=== PATIENT | female | born 1955 | race Caucasian/White ===

== ENCOUNTER 2018-11-01 05:37 | Day surgery (SDC) | payer MEDICAID ==
[2018-11-01] VITALS (8 sets, daily range): BP systolic 119–151; BP diastolic 40–82
[~2018-11-01] VITALS: Ht 165.1 cm; Wt 91.2 kg
[2018-11-01] MEDS ORDERED: PROPOFOL 10 MG/ML 20ML VIAL IV ONE ×2 (06:30→06:31)
[2018-11-01] MEDS ORDERED: GLYCOPYRROLATE 0.2 MG/ML 5 ML VIAL ONE (06:31)
[2018-11-01] MEDS ORDERED: STOOL SOFTNER PO (06:35)
[2018-11-01] MEDS ORDERED: HYDR25TA PO (06:35)
[2018-11-01] MEDS ORDERED: DORZ10DR10 OP (06:35)
[2018-11-01] MEDS ORDERED: ATOR10 PO (06:35)
[2018-11-01] MEDS ORDERED: QUET50TA55 PO (06:35)
[2018-11-01] MEDS ORDERED: CETI10TA57 PO (06:35)
[2018-11-01] MEDS ORDERED: IBUP-2353 PO (06:35)
[2018-11-01] MEDS ORDERED: LIRA0.6P SQ (06:35)
[2018-11-01] MEDS ORDERED: INSU100V12 SQ (06:35)
[2018-11-01] MEDS ORDERED: METO50TA18 PO (06:35)
[2018-11-01] MEDS ORDERED: TRAZ-185 PO (06:35)
[2018-11-01] MEDS ORDERED: ZOLP5TAB8 PO (06:35)
[2018-11-01] MEDS ORDERED: LATA7.5D OP (06:35)
[2018-11-01] MEDS ORDERED: DULO60CA63 PO (06:35)
[2018-11-01] MEDS ORDERED: AEC81 PO (06:35)
[2018-11-01] MEDS ORDERED: FLUT15.88 NS (06:35)
[2018-11-01] MEDS ORDERED: INSU100I35 SQ (06:35)
[2018-11-01] MEDS ORDERED: LISI40TA4 PO (06:35)
[2018-11-01] MEDS ORDERED: CHLO25TA3 PO (06:35)
[2018-11-01] MEDS ORDERED: METF-806 PO (06:35)
== END 2018-11-01 10:50 | disposition home or self-care (01) ==
LOC: ENDO 05:37 → DAH 05:37 → ENDO 10:50
PROVIDERS: ATTEND Internal Medicine
DX: R63.4 Abnormal weight loss (principal); K29.50 Unspecified chronic gastritis without bleeding; K44.9 Diaphragmatic hernia without obstruction or gangrene; K22.8 Other specified diseases of esophagus; E78.5 Hyperlipidemia, unspecified; I10 Essential (primary) hypertension; F41.9 Anxiety disorder, unspecified; F32.9 Major depressive disorder, single episode, unspecified; E11.9 Type 2 diabetes mellitus without complications; M81.0 Age-related osteoporosis without current pathological fracture; M19.90 Unspecified osteoarthritis, unspecified site; Z79.899 Other long term (current) drug therapy; Z98.890 Other specified postprocedural states
CPT/HCPCS: 43239; 45378; 82948; 88305; A4606 ×2; J2704 ×2; J3490; 45380; 45384

== ENCOUNTER 2018-11-02 05:30 | Day surgery (SDC) | payer MEDICAID ==
[~2018-11-02] VITALS: Ht 165.1 cm; Wt 91.2 kg
[~2018-11-02 05:30] MED LIST: AEC81 PO; ATOR10 PO; CETI10TA57 PO; CHLO25TA3 PO; DORZ10DR10 OP; DULO60CA63 PO; FLUT15.88 NS; HYDR25TA PO; IBUP-2353 PO; INSU100I35 SQ; INSU100V12 SQ; LATA7.5D OP; LIRA0.6P SQ; LISI40TA4 PO; METF-806 PO; METO50TA18 PO; QUET50TA55 PO; STOOL SOFTNER PO; TRAZ-185 PO; ZOLP5TAB8 PO
[2018-11-02] MEDS ORDERED: SODIUM CHLORIDE 0.9% 1000ML 1,000 ML IV ONE (05:50)
[2018-11-02 06:00] VITALS: BP 135/81
[2018-11-02] MEDS ORDERED: PROPOFOL 10 MG/ML 20ML VIAL IV ONE (07:15)
[2018-11-02 07:30] VITALS: BP 111/57
[2018-11-02 07:35] VITALS: BP 109/62
[2018-11-02 07:40] VITALS: BP 151/80
[2018-11-02 07:50] VITALS: BP 114/75
== END 2018-11-02 08:00 | disposition home or self-care (01) ==
LOC: ENDO 05:30 → DAH 05:30 → ENDO 08:00
PROVIDERS: ATTEND Internal Medicine
DX: K63.5 Polyp of colon (principal); Z68.33 Body mass index [BMI] 33.0-33.9, adult; E78.5 Hyperlipidemia, unspecified; I10 Essential (primary) hypertension; F41.9 Anxiety disorder, unspecified; F32.9 Major depressive disorder, single episode, unspecified; E11.9 Type 2 diabetes mellitus without complications; M81.0 Age-related osteoporosis without current pathological fracture; M19.90 Unspecified osteoarthritis, unspecified site; G40.909 Epilepsy, unspecified, not intractable, without status epilepticus; Z98.890 Other specified postprocedural states; Z79.899 Other long term (current) drug therapy; Z79.84 Long term (current) use of oral hypoglycemic drugs; Z79.4 Long term (current) use of insulin; K57.30 Diverticulosis of large intestine without perforation or abscess without bleeding
CPT/HCPCS: 45380; 82948 ×2; A4606; J2704; J7030

== ENCOUNTER 2018-11-30 07:44 | Day surgery (SDC) | payer MEDICAID ==
[~2018-11-30] VITALS: Ht 165.1 cm; Wt 88.9 kg
[2018-11-30] MEDS ORDERED: SODIUM CHLORIDE 0.9% 1000ML 1,000 ML IV ONE (08:07)
[2018-11-30 08:29] VITALS: BP 129/57
[2018-11-30] MEDS ORDERED: PROPOFOL 10 MG/ML 20ML VIAL IV ONE (09:06)
[2018-11-30] MEDS ORDERED: LIDOCAINE HCL 2% 20ML ONE (09:08)
[2018-11-30 09:26] VITALS: BP 144/66
[2018-11-30 09:28] VITALS: BP 110/65
[2018-11-30 09:30] VITALS: BP 119/56
== END 2018-11-30 10:04 | disposition home or self-care (01) ==
LOC: DAH 07:44
PROVIDERS: ATTEND Internal Medicine Gastroenterology
DX: K31.89 Other diseases of stomach and duodenum (principal); E78.5 Hyperlipidemia, unspecified; I10 Essential (primary) hypertension; F41.9 Anxiety disorder, unspecified; F32.9 Major depressive disorder, single episode, unspecified; E11.9 Type 2 diabetes mellitus without complications; M81.0 Age-related osteoporosis without current pathological fracture; M19.90 Unspecified osteoarthritis, unspecified site; G40.909 Epilepsy, unspecified, not intractable, without status epilepticus; Z68.32 Body mass index [BMI] 32.0-32.9, adult; Z79.899 Other long term (current) drug therapy; Z98.890 Other specified postprocedural states; Z79.4 Long term (current) use of insulin; Z79.84 Long term (current) use of oral hypoglycemic drugs; K21.9 Gastro-esophageal reflux disease without esophagitis
CPT/HCPCS: 43259; 82948 ×2; A4606; J2704; J3490; J7030

== ENCOUNTER 2021-08-17 09:52 | Inpatient (IN) | payer MEDICARE ==
[~2021-08-17] VITALS: Ht 160 cm; Wt 87.7 kg
[~2021-08-17 09:52] MED LIST changes: -DORZ10DR10 OP; -DULO60CA63 PO; +DULO60CA64 PO; +FLUT15.845 NS; -FLUT15.88 NS; -IBUP-2353 PO; +IBUP-2784 PO; -LISI40TA4 PO; +LISI40TA9 PO; -METF-806 PO; +METF-891 PO; +QUET50TA24 PO; -QUET50TA55 PO
[2021-08-17 10:16] LABS: APPEARANCE,URINE Clear (CLEAR); BILIRUBIN,URINE Negative (NEGATIVE); COLOR,URINE Yellow (YELLOW); GLUCOSE, URINE (UA) Negative (NEGATIVE); KETONES,URINE Negative (NEGATIVE); LEUKOCYTE ESTERASE ,URINE Trace (NEGATIVE); NITRATE,URINE Negative (NEGATIVE); OCCULT BLOOD,URINE Negative (NEGATIVE); PROTEIN,URINE Negative (NEGATIVE); UROBILINOGEN,URINE 0.2 mg/dL (0.2-1.0)
[2021-08-17 10:24] LABS: BASOPHILS % (AUTO) 0.2 % (0.0-5.0); HEMATOCRIT 22.5 % (36-48); LYMPHOCYTES % (AUTO) 36.8 % (21.0-51.0); MEAN CORPUSCULAR HEMOGLOBIN 31.5 pg (27.0-33.0); MEAN CORPUSCULAR HGB CONC 34.7 g/dL (32.0-36.0); MEAN CORPUSCULAR VOLUME 90.7 fL (79-99); MONOCYTES % (AUTO) 19.6 % (3.0-13.0); PLATELET COUNT (AUTO) 84 K/uL (130-400); RED BLOOD CELL COUNT(AUTO) 2.48 MIL/uL (4.00-5.50); RED CELL DISTRIBUTION WIDTH 17.2 % (11.0-15.5)
[2021-08-17 10:28] LABS: BACTERIA,URINE Few /HPF (None Seen); RBC,URINE None Seen /HPF (0-1); WBC,URINE 0-1 /HPF (0-1)
[2021-08-17 10:29] LABS: CREATININE 1.4 mg/dL (0.5-1.5); POTASSIUM 3.5 mmol/L (3.5-5.1)
[2021-08-17 10:31] LABS: INR 1.06 (0.85-1.15); PROTHROMBIN TIME 11.5 SEC (9.6-11.6)
[2021-08-17 10:32] LABS: PARTIAL THROMBOPLASTIN TIME 21.9 SEC (26.3-35.5)
[2021-08-17 10:34] LABS: ALBUMIN 3.8 g/dL (3.5-5.0); BILIRUBIN,TOTAL 0.3 mg/dL (0.2-1.0); TOTAL PROTEIN, SERUM 7.4 g/dL (6.0-8.3)
[2021-08-17] MEDS ORDERED: ZOSYN 3.375GM +NS 50ML IV ONE (11:30)
[2021-08-17] MEDS ORDERED: LACTATED RINGERS 1000ML 1,000 ML IV SCH ×2 (13:00→13:30)
[2021-08-17] MEDS ORDERED: DEXTROSE 50%-WATER 50 ML DISP.SYRIN IV ONE (13:03)
[2021-08-17] MEDS ORDERED: MAGNESIUM 2GM PREMIX 50ML 50 ML IV SCH (13:30)
[2021-08-17] MEDS ORDERED: GLUCAGON 1MG KIT 1 MG ML IM PRN (13:30)
[2021-08-17] MEDS ORDERED: DEXTROSE 50%-WATER 50 ML DISP.SYRIN IV PRN (13:30)
[2021-08-17] MEDS ORDERED: ONDANSETRON 4MG INJ IV PRN (13:30)
[2021-08-17] MEDS ORDERED: VANCOMYCIN PROTOCOL PER PHARMACY IV PRN (13:30)
[2021-08-17] MEDS: DEXTROSE 5 % AND 0.9 % NACL 1,000 ML IV SCH (13:32)
[2021-08-17 13:48] LABS: AMPHET/METH SCREEN,URINE NEGATIVE (NEGATIVE); BARBITURATE SCREEN, URINE NEGATIVE (NEGATIVE); BENZODIAZEPINES SCREEN,URINE NEGATIVE (NEGATIVE); CANNABINOID SCREEN,URINE NEGATIVE (NEGATIVE); COCAINE SCREEN,URINE NEGATIVE (NEGATIVE); OPIATE SCREEN,URINE NEGATIVE (NEGATIVE); PHENCYCLIDINE SCREEN,URINE NEGATIVE (NEGATIVE)
[2021-08-17 13:58] LABS: HEMOGLOBIN A1C 5.5 % (4.0-6.0)
[2021-08-17] MEDS ORDERED: COMPOUND IV REFRIGERATED 1 EACH IVSOLN MISC PRN (14:00)
[2021-08-17] MEDS ORDERED: PHARMACY COMMUNICATION MISC SCH (14:30)
[2021-08-17 14:49] LABS: % IRON SATURATION 28.2 % (22-44)
[2021-08-17 15:30] VITALS: BP 116/63
[2021-08-17 15:45] LABS: HEMATOCRIT 21.1 % (36-48)
[2021-08-17] MEDS: VANCOMYCIN 1.25GM/NS 250ML IVPB SCH ×2 (16:06)
[2021-08-17 20:38] VITALS: BP 97/59
[2021-08-17] MEDS: FAMOTIDINE 20MG VIAL IV SCH (21:08)
[2021-08-17] MEDS: ZOSYN 3.375GM+NS 50ML 50 ML IV SCH (21:08)
[2021-08-17 22:23] LABS: HEMATOCRIT 19.6 % (36-48)
[2021-08-17 23:32] VITALS: BP 97/75
[2021-08-18 04:04] VITALS: BP 134/77
[2021-08-18 04:59] LABS: HEMATOCRIT 25.3 % (36-48)
[2021-08-18] MEDS ORDERED: CHOL200074 PO (05:42)
[2021-08-18] MEDS ORDERED: ONDA-105 PO (05:42)
[2021-08-18] MEDS ORDERED: QUET50TA24 PO (05:42)
[2021-08-18] MEDS ORDERED: TIMO1DRO5 OP (05:42)
[2021-08-18] MEDS ORDERED: CYAN250010 PO (05:42)
[2021-08-18] MEDS ORDERED: MELA1TAB21 PO (05:42)
[2021-08-18] MEDS ORDERED: BIOT5000 PO (05:42)
[2021-08-18] MEDS ORDERED: ZINC30CA PO (05:42)
[2021-08-18] MEDS ORDERED: CHLO50TA PO (05:42)
[2021-08-18] MEDS ORDERED: GABA-529 PO (05:42)
[2021-08-18] MEDS ORDERED: ZOLP10TA2 PO (05:42)
[2021-08-18] MEDS ORDERED: SEMA1PEN3 SQ (05:42)
[2021-08-18] MEDS: ZOSYN 3.375GM+NS 50ML 50 ML IV SCH ×3 (06:11→21:19)
[2021-08-18 06:41] LABS: ALBUMIN 3.6 g/dL (3.5-5.0); BILIRUBIN,TOTAL 0.4 mg/dL (0.2-1.0); CREATININE 1.2 mg/dL (0.5-1.5); POTASSIUM 3.6 mmol/L (3.5-5.1)
[2021-08-18 07:57] VITALS: BP 116/61
[2021-08-18] MEDS: FAMOTIDINE 20MG VIAL IV SCH ×2 (09:09→21:20)
[2021-08-18] MEDS: DEXTROSE 5 % AND 0.9 % NACL 1,000 ML IV SCH ×2 (09:30→19:30)
[2021-08-18 09:50] LABS: HEMATOCRIT 24.5 % (36-48)
[2021-08-18 10:58] VITALS: BP 145/74
[2021-08-18] MEDS: INSULIN HUMULIN R 100 UNIT/ML 3ML SQ SCH ×3 (12:43→21:36)
[2021-08-18] MEDS: VANCOMYCIN 1.25GM/NS 250ML IVPB SCH ×2 (15:24)
[2021-08-18 16:29] VITALS: BP 145/69
[2021-08-18] MEDS: ASPIRIN 81MG CHEW TAB PO SCH (18:36)
[2021-08-18 20:00] VITALS: BP 121/67
[2021-08-18] MEDS: LATANOPROST 2.5 ML DROPS OP SCH (21:00)
[2021-08-18] MEDS: TIMOLOL MALEATE 0.5% 5 ML BOTTLE OP SCH (21:00)
[2021-08-18] MEDS ORDERED: PYRIDOXINE HCL PO PRN (21:00)
[2021-08-18] MEDS ORDERED: MELATONIN PO PRN (21:00)
[2021-08-18] MEDS: QUETIAPINE FUMARATE 25 MG TAB PO SCH (21:18)
[2021-08-18] MEDS: ATORVASTATIN 20 MG TABLET PO SCH (21:18)
[2021-08-18] MEDS: GABAPENTIN 100 MG CAPSULE PO SCH (21:18)
[2021-08-18] MEDS: METOPROLOL TARTRATE 25 MG TAB PO SCH (21:18)
[2021-08-19] VITALS: BP 122/74
[2021-08-19 03:56] VITALS: BP 126/76
[2021-08-19] MEDS: DEXTROSE 5 % AND 0.9 % NACL 1,000 ML IV SCH (05:30)
[2021-08-19] MEDS: ZOSYN 3.375GM+NS 50ML 50 ML IV SCH ×3 (06:37→20:51)
[2021-08-19] MEDS: INSULIN HUMULIN R 100 UNIT/ML 3ML SQ SCH ×6 (06:38→21:17)
[2021-08-19 07:17] LABS: EOSINOPHILS % (AUTO) 0.8 % (0.0-8.0); HEMATOCRIT 24.5 % (36-48); LYMPHOCYTES % (AUTO) 36.9 % (21.0-51.0); MEAN CORPUSCULAR HEMOGLOBIN 30.6 pg (27.0-33.0); MEAN CORPUSCULAR HGB CONC 33.1 g/dL (32.0-36.0); MEAN CORPUSCULAR VOLUME 92.5 fL (79-99); NEUTROPHILS % (AUTO) 39.3 % (40.0-77.0); RED BLOOD CELL COUNT(AUTO) 2.65 MIL/uL (4.00-5.50); RED CELL DISTRIBUTION WIDTH 16.6 % (11.0-15.5); WHITE BLOOD COUNT (AUTO) 3.7 K/uL (4.8-10.8)
[2021-08-19 07:19] LABS: PLATELET COUNT (AUTO) 46 K/uL (130-400)
[2021-08-19 07:35] LABS: CREATININE 1.1 mg/dL (0.5-1.5)
[2021-08-19] MEDS: INSULIN GLARGINE 100 UNITS/ML 10 ML VIAL SQ SCH (07:58)
[2021-08-19] MEDS: FAMOTIDINE 20MG VIAL IV SCH ×2 (07:58→20:51)
[2021-08-19] MEDS: GABAPENTIN 100 MG CAPSULE PO SCH ×2 (08:00→20:49)
[2021-08-19] MEDS: DULOXETINE HCL 30 MG CAP PO SCH (08:00)
[2021-08-19] MEDS: METOPROLOL TARTRATE 25 MG TAB PO SCH ×2 (08:00→20:54)
[2021-08-19] MEDS: QUETIAPINE FUMARATE 25 MG TAB PO SCH ×2 (08:01→20:48)
[2021-08-19] MEDS: ASPIRIN 81MG CHEW TAB PO SCH (08:01)
[2021-08-19 08:05] VITALS: BP 119/67
[2021-08-19] MEDS: LATANOPROST 2.5 ML DROPS OP SCH ×2 (08:19→20:51)
[2021-08-19] MEDS: **HM**(Biotin 5,000 MCG PO SCH (08:19)
[2021-08-19] MEDS: TIMOLOL MALEATE 0.5% 5 ML BOTTLE OP SCH ×2 (08:19→20:50)
[2021-08-19] MEDS: FLUTICASONE PROPIONATE 50MCG/SPRAY 16 GM BOTTLE NS SCH (09:00)
[2021-08-19 11:46] VITALS: BP 116/64
[2021-08-19 17:02] VITALS: BP 117/67
[2021-08-19] MEDS: VANCOMYCIN 1.25GM/NS 250ML IVPB SCH ×2 (17:25)
[2021-08-19 20:00] VITALS: BP 120/66
[2021-08-19] MEDS: ATORVASTATIN 20 MG TABLET PO SCH (20:48)
[2021-08-20] VITALS: BP 94/55
[2021-08-20 04:00] VITALS: BP 106/67
[2021-08-20 05:17] LABS: EOSINOPHILS % (AUTO) 1.3 % (0.0-8.0); HEMATOCRIT 23.6 % (36-48); LYMPHOCYTES % (AUTO) 30.2 % (21.0-51.0); MEAN CORPUSCULAR HEMOGLOBIN 29.9 pg (27.0-33.0); MEAN CORPUSCULAR HGB CONC 33.1 g/dL (32.0-36.0); MEAN CORPUSCULAR VOLUME 90.4 fL (79-99); MONOCYTES % (AUTO) 20.5 % (3.0-13.0); NEUTROPHILS % (AUTO) 47.7 % (40.0-77.0); PLATELET COUNT (AUTO) 47 K/uL (130-400); RED BLOOD CELL COUNT(AUTO) 2.61 MIL/uL (4.00-5.50); RED CELL DISTRIBUTION WIDTH 16.2 % (11.0-15.5); WHITE BLOOD COUNT (AUTO) 3.7 K/uL (4.8-10.8)
[2021-08-20 05:32] LABS: ALBUMIN 3.3 g/dL (3.5-5.0); BILIRUBIN,TOTAL 0.4 mg/dL (0.2-1.0); CREATININE 1.1 mg/dL (0.5-1.5); POTASSIUM 3.9 mmol/L (3.5-5.1); TOTAL PROTEIN, SERUM 6.6 g/dL (6.0-8.3)
[2021-08-20] MEDS: INSULIN HUMULIN R 100 UNIT/ML 3ML SQ SCH ×8 (06:03→21:18)
[2021-08-20] MEDS: ZOSYN 3.375GM+NS 50ML 50 ML IV SCH ×3 (06:11→21:04)
[2021-08-20 07:51] VITALS: BP 121/70
[2021-08-20] MEDS: DULOXETINE HCL 30 MG CAP PO SCH (10:09)
[2021-08-20] MEDS: ASPIRIN 81MG CHEW TAB PO SCH (10:09)
[2021-08-20] MEDS: QUETIAPINE FUMARATE 25 MG TAB PO SCH ×2 (10:09→21:04)
[2021-08-20] MEDS: METOPROLOL TARTRATE 25 MG TAB PO SCH ×2 (10:09→21:04)
[2021-08-20] MEDS: FAMOTIDINE 20MG VIAL IV SCH ×2 (10:09→21:04)
[2021-08-20] MEDS: FLUTICASONE PROPIONATE 50MCG/SPRAY 16 GM BOTTLE NS SCH (10:10)
[2021-08-20] MEDS: INSULIN GLARGINE 100 UNITS/ML 10 ML VIAL SQ SCH (10:16)
[2021-08-20] MEDS: LATANOPROST 2.5 ML DROPS OP SCH ×2 (10:38→21:00)
[2021-08-20] MEDS: TIMOLOL MALEATE 0.5% 5 ML BOTTLE OP SCH ×2 (10:38→21:00)
[2021-08-20] MEDS: **HM**(Biotin 5,000 MCG PO SCH (10:38)
[2021-08-20] MEDS: GABAPENTIN 100 MG CAPSULE PO SCH ×2 (10:42→21:04)
[2021-08-20 10:52] VITALS: BP 109/73
[2021-08-20 16:04] VITALS: BP 100/59
[2021-08-20] MEDS: VANCOMYCIN 1G/250ML KIT 250 ML IV SCH (16:20)
[2021-08-20 20:00] VITALS: BP 126/64
[2021-08-20] MEDS: ATORVASTATIN 20 MG TABLET PO SCH (21:04)
[2021-08-21] VITALS: BP 118/72
[2021-08-21 03:43] LABS: BASOPHILS % (AUTO) 0.3 % (0.0-5.0); EOSINOPHILS % (AUTO) 0.9 % (0.0-8.0); HEMATOCRIT 22.5 % (36-48); LYMPHOCYTES % (AUTO) 34.3 % (21.0-51.0); MEAN CORPUSCULAR HEMOGLOBIN 30.6 pg (27.0-33.0); MEAN CORPUSCULAR HGB CONC 33.3 g/dL (32.0-36.0); MEAN CORPUSCULAR VOLUME 91.8 fL (79-99); MONOCYTES % (AUTO) 22.3 % (3.0-13.0); NEUTROPHILS % (AUTO) 41.6 % (40.0-77.0); PLATELET COUNT (AUTO) 49 K/uL (130-400); RED BLOOD CELL COUNT(AUTO) 2.45 MIL/uL (4.00-5.50); RED CELL DISTRIBUTION WIDTH 16.3 % (11.0-15.5); WHITE BLOOD COUNT (AUTO) 3.5 K/uL (4.8-10.8)
[2021-08-21 04:00] VITALS: BP 110/66
[2021-08-21 04:01] LABS: ALBUMIN 3.1 g/dL (3.5-5.0); BILIRUBIN,TOTAL 0.3 mg/dL (0.2-1.0); POTASSIUM 3.9 mmol/L (3.5-5.1); TOTAL PROTEIN, SERUM 6.4 g/dL (6.0-8.3)
[2021-08-21] MEDS: VANCOMYCIN 1G/250ML KIT 250 ML IV SCH (04:44)
[2021-08-21] MEDS: ZOSYN 3.375GM+NS 50ML 50 ML IV SCH ×2 (04:44→13:39)
[2021-08-21] MEDS: QUETIAPINE FUMARATE 25 MG TAB PO SCH (07:20)
[2021-08-21] MEDS: INSULIN HUMULIN R 100 UNIT/ML 3ML SQ SCH ×3 (07:23→11:27)
[2021-08-21] MEDS ORDERED: INSULIN GLARGINE 100 UNITS/ML 10 ML VIAL SQ SCH (08:00)
[2021-08-21] MEDS: METOPROLOL TARTRATE 25 MG TAB PO SCH (08:36)
[2021-08-21] MEDS: ASPIRIN 81MG CHEW TAB PO SCH (08:37)
[2021-08-21] MEDS: DULOXETINE HCL 30 MG CAP PO SCH (08:37)
[2021-08-21] MEDS: FAMOTIDINE 20MG VIAL IV SCH (08:37)
[2021-08-21] MEDS: TIMOLOL MALEATE 0.5% 5 ML BOTTLE OP SCH (08:38)
[2021-08-21] MEDS: LATANOPROST 2.5 ML DROPS OP SCH (08:38)
[2021-08-21 08:39] VITALS: BP 96/58
[2021-08-21] MEDS: **HM**(Biotin 5,000 MCG PO SCH (08:47)
[2021-08-21] MEDS: FLUTICASONE PROPIONATE 50MCG/SPRAY 16 GM BOTTLE NS SCH (08:49)
[2021-08-21 11:52] VITALS: BP 113/66
[2021-08-21] MEDS: GABAPENTIN 100 MG CAPSULE PO SCH (14:55)
[2021-08-21 15:54] VITALS: BP 140/74
[2021-08-21] MEDS ORDERED: INSULIN HUMULIN R 100 UNIT/ML 3ML SQ SCH (17:00)
[2021-08-22] MEDS ORDERED: INSULIN GLARGINE 100 UNITS/ML 10 ML VIAL SQ SCH (08:00)
== END 2021-08-21 18:45 | disposition home health service (06) | DRG 853 ==
LOC: EDH 09:52 → EDHIP 13:14 → 4DH 15:18
PROVIDERS: ADMIT Internal Medicine; ATTEND Internal Medicine
PROC: 0JBR0ZZ Excision of Left Foot Subcutaneous Tissue and Fascia, Open Approach (ICD-10-PCS; principal; 2021-08-17)
PROC: 0JBQ0ZZ Excision of Right Foot Subcutaneous Tissue and Fascia, Open Approach (ICD-10-PCS; 2021-08-17)
PROC: 30233N1 Transfusion of Nonautologous Red Blood Cells into Peripheral Vein, Percutaneous Approach (ICD-10-PCS; 2021-08-18)
DX: A41.9 Sepsis, unspecified organism (principal); D61.810 Antineoplastic chemotherapy induced pancytopenia; C78.7 Secondary malignant neoplasm of liver and intrahepatic bile duct; L02.612 Cutaneous abscess of left foot; M86.8X7 Other osteomyelitis, ankle and foot; I82.812 Embolism and thrombosis of superficial veins of left lower extremity; D84.9 Immunodeficiency, unspecified; E66.9 Obesity, unspecified; E83.42 Hypomagnesemia; E78.5 Hyperlipidemia, unspecified; Z68.33 Body mass index [BMI] 33.0-33.9, adult; Z20.822 Contact with and (suspected) exposure to COVID-19; M19.90 Unspecified osteoarthritis, unspecified site; B35.1 Tinea unguium; B95.8 Unspecified staphylococcus as the cause of diseases classified elsewhere; D63.8 Anemia in other chronic diseases classified elsewhere; E78.00 Pure hypercholesterolemia, unspecified; F31.9 Bipolar disorder, unspecified; F43.10 Post-traumatic stress disorder, unspecified; G20 Parkinson's disease; I10 Essential (primary) hypertension; L03.039 Cellulitis of unspecified toe; L60.2 Onychogryphosis; E10.621 Type 1 diabetes mellitus with foot ulcer; E10.649 Type 1 diabetes mellitus with hypoglycemia without coma; E10.40 Type 1 diabetes mellitus with diabetic neuropathy, unspecified; E10.69 Type 1 diabetes mellitus with other specified complication; Z60.2 Problems related to living alone; R53.81 Other malaise; L97.519 Non-pressure chronic ulcer of other part of right foot with unspecified severity; L97.529 Non-pressure chronic ulcer of other part of left foot with unspecified severity; Z79.4 Long term (current) use of insulin; Z83.3 Family history of diabetes mellitus; Z82.0 Family history of epilepsy and other diseases of the nervous system; Z80.49 Family history of malignant neoplasm of other genital organs; Z80.1 Family history of malignant neoplasm of trachea, bronchus and lung; Z85.118 Personal history of other malignant neoplasm of bronchus and lung; L03.032 Cellulitis of left toe; L03.031 Cellulitis of right toe
CPT/HCPCS: 36415; 70450; 71045; 73630; 73718; 76700; 80048; 80053; 80202; 80305; 81001; 82140; 82550; 82728; 82948; 83036; 83540; 83550; 83605; 83735; 84484; 85014; 85018; 85025; 85610; 85730; 86850; 86900; 86901; 86923; 87040; 87070; 87088; 87635; 87804; 93005; 93925; 93970; C9803; G0378; J1815; J2543; J3370; J3490; J7042; J7050; J7070; P9016

== ENCOUNTER 2022-01-15 20:50 | Inpatient (IN) | payer MEDICARE ==
[~2022-01-15] VITALS: Ht 157.5 cm; Wt 104.6 kg
[~2022-01-15 20:50] MED LIST changes: -AEC81 PO; +BIOT5000 PO; -CETI10TA57 PO; -CHLO25TA3 PO; +CHLO50TA PO; +CHOL200074 PO; +CYAN250010 PO; +GABA-529 PO; -INSU100I35 SQ; -INSU100V12 SQ; -LIRA0.6P SQ; +MELA1TAB21 PO; +ONDA-105 PO; +SEMA1PEN3 SQ; +TIMO1DRO5 OP; +ZINC30CA PO; +ZOLP10TA2 PO; -ZOLP5TAB8 PO
[2022-01-15 21:46] LABS: HEMATOCRIT 36.5 % (36-48); MEAN CORPUSCULAR HEMOGLOBIN 31.2 pg (27.0-33.0); MEAN CORPUSCULAR HGB CONC 31.8 g/dL (32.0-36.0); MEAN CORPUSCULAR VOLUME 98.1 fL (79-99); PLATELET COUNT (AUTO) 110 K/uL (130-400); RED BLOOD CELL COUNT(AUTO) 3.72 MIL/uL (4.00-5.50); WHITE BLOOD COUNT (AUTO) 12.3 K/uL (4.8-10.8)
[2022-01-15 21:54] LABS: BASOPHILS % (AUTO) 0.2 % (0.0-5.0); EOSINOPHILS % (AUTO) 0.4 % (0.0-8.0); LYMPHOCYTES % (AUTO) 7.4 % (21.0-51.0); MONOCYTES % (AUTO) 10.7 % (3.0-13.0); NEUTROPHILS % (AUTO) 80.4 % (40.0-77.0)
[2022-01-15 21:55] LABS: POTASSIUM 3.8 mmol/L (3.5-5.1)
[2022-01-15 22:02] LABS: ALBUMIN 1.7 g/dL (3.5-5.0); BILIRUBIN,TOTAL 3.6 mg/dL (0.2-1.0); CRP QUANTITATIVE 179.5 mg/L (0.00-9.0); MAGNESIUM 1.3 mg/dL (1.80-2.40); TOTAL PROTEIN, SERUM 6.7 g/dL (6.0-8.3)
[2022-01-15 22:51] LABS: APPEARANCE,URINE Clear (CLEAR); BILIRUBIN,URINE Negative (NEGATIVE); COLOR,URINE Dark Yellow (YELLOW); GLUCOSE, URINE (UA) Negative (NEGATIVE); KETONES,URINE Negative (NEGATIVE); LEUKOCYTE ESTERASE ,URINE Trace (NEGATIVE); NITRATE,URINE Negative (NEGATIVE); OCCULT BLOOD,URINE Negative (NEGATIVE); PROTEIN,URINE Negative (NEGATIVE)
[2022-01-15 23:02] LABS: BACTERIA,URINE None Seen /HPF (None Seen); RBC,URINE None Seen /HPF (0-1); SQUAMOUS EPITHELIAL CELL,UR Few /HPF (0-2)
[2022-01-16] MEDS ORDERED: CEFTRIAXONE 1G VIAL ONE (01:56)
[2022-01-16] MEDS ORDERED: 0.9%NACL 1000ML 1,000 ML IV ONE (01:56)
[2022-01-16] MEDS: CEFTRIAXONE 1G VIAL IVP SCH (02:00)
[2022-01-16] MEDS: 0.9%NACL 1000ML 1,000 ML IV SCH ×3 (02:00→20:29)
[2022-01-16] MEDS ORDERED: ONDANSETRON 4MG INJ IVP PRN (02:00)
[2022-01-16] MEDS: MAGNESIUM 2GM PREMIX 50ML 50 ML IV SCH (03:36)
[2022-01-16 04:00] VITALS: BP 110/82
[2022-01-16 08:00] VITALS: BP 127/72
[2022-01-16 12:00] VITALS: BP 133/60
[2022-01-16 16:00] VITALS: BP 128/72
[2022-01-16 20:00] VITALS: BP 119/57
[2022-01-16] MEDS ORDERED: ZINC OXIDE OINT 56.7 GM TP SCH (21:00)
[2022-01-17] VITALS: BP 140/66
[2022-01-17] MEDS: CEFTRIAXONE 1G VIAL IVP SCH (02:12)
[2022-01-17 04:00] VITALS: BP 128/58
[2022-01-17] MEDS: MORPHINE 2 MG SYG IVP PRN ×3 (04:26→23:11)
[2022-01-17 08:00] VITALS: BP 134/75
[2022-01-17] MEDS: ZINC OXIDE OINT 56.7 GM TP SCH ×3 (09:49→20:30)
[2022-01-17] MEDS: 0.9%NACL 1000ML 1,000 ML IV SCH ×2 (09:50→20:29)
[2022-01-17 11:49] VITALS: BP 159/86
[2022-01-17 13:35] LABS: HEMATOCRIT 33.7 % (36-48); MEAN CORPUSCULAR HEMOGLOBIN 31.4 pg (27.0-33.0); NUCLEATED RED BLOOD CELLS 0.1 % (0.0-0.19); PLATELET COUNT (AUTO) 96 K/uL (130-400); RED BLOOD CELL COUNT(AUTO) 3.44 MIL/uL (4.00-5.50); RED CELL DISTRIBUTION WIDTH 18.9 % (11.0-15.5); WHITE BLOOD COUNT (AUTO) 13.7 K/uL (4.8-10.8)
[2022-01-17 13:56] LABS: LYMPHOCYTES % (MANUAL) 8 % (22-44); MAN.DIFF COMMENT-IMPRESSION MANUAL DIFFERENTIAL; MONOCYTES % (MANUAL) 8 % (2-9); PLATELET MORPHOLOGY COMMENT DECREASED; SEGMENTED NEUTROPHILS % 84 % (40-70)
[2022-01-17 16:00] VITALS: BP 123/65
[2022-01-17 20:00] VITALS: BP 136/71
[2022-01-17] MEDS: NYSTATIN 15 GM POWDER TP SCH (20:31)
[2022-01-18] VITALS (7 sets, daily range): BP systolic 126–143; BP diastolic 67–87
[2022-01-18] MEDS: CEFTRIAXONE 1G VIAL IVP SCH (02:10)
[2022-01-18] MEDS: 0.9%NACL 1000ML 1,000 ML IV SCH ×3 (04:00→23:19)
[2022-01-18] MEDS: NYSTATIN 15 GM POWDER TP SCH ×2 (09:24→21:12)
[2022-01-18] MEDS: ZINC OXIDE OINT 56.7 GM TP SCH ×3 (09:24→21:12)
[2022-01-18] MEDS: MORPHINE 2 MG SYG IVP PRN ×2 (09:51→18:21)
[2022-01-18 12:25] LABS: HEMATOCRIT 40.4 % (36-48); MEAN CORPUSCULAR HEMOGLOBIN 31.4 pg (27.0-33.0); MEAN CORPUSCULAR HGB CONC 31.7 g/dL (32.0-36.0); PLATELET COUNT (AUTO) 94 K/uL (130-400); RED BLOOD CELL COUNT(AUTO) 4.08 MIL/uL (4.00-5.50); RED CELL DISTRIBUTION WIDTH 19.2 % (11.0-15.5); WHITE BLOOD COUNT (AUTO) 15.9 K/uL (4.8-10.8)
[2022-01-18 12:49] LABS: ALBUMIN 1.7 g/dL (3.5-5.0); BILIRUBIN,TOTAL 4.8 mg/dL (0.2-1.0); CREATININE 1.2 mg/dL (0.5-1.5); MAGNESIUM 1.2 mg/dL (1.80-2.40); POTASSIUM 3.3 mmol/L (3.5-5.1); TOTAL PROTEIN, SERUM 6.7 g/dL (6.0-8.3)
[2022-01-18 13:25] LABS: BAND NEUTROPHILS % (MANUAL) 3 % (0-2); BASOPHILS % (MANUAL) 1 % (0-2); LYMPHOCYTES % (MANUAL) 5 % (22-44); MAN.DIFF COMMENT-IMPRESSION MANUAL DIFFERENTIAL; MONOCYTES % (MANUAL) 14 % (2-9); PLATELET MORPHOLOGY COMMENT MARKED DECREASE; SEGMENTED NEUTROPHILS % 77 % (40-70)
[2022-01-18] MEDS ORDERED: LIDOCAINE HCL-MPF 1% 2ML VIAL IJ PRN (13:30)
[2022-01-18] MEDS ORDERED: POTASSIUM CHLORIDE 10% ELIXIR 20 MEQ/15 ML UDCUP PO PRN (13:30)
[2022-01-18] MEDS ORDERED: POTASSIUM CHLORIDE 20MEQ/100ML 100 ML IV PRN (13:30)
[2022-01-18] MEDS: MAGNESIUM 2GM PREMIX 50ML 50 ML IV SCH ×2 (14:23→18:16)
[2022-01-18] MEDS: KCL 20 MEQ ERTAB PO PRN ×3 (14:29→18:31)
[2022-01-18] MEDS ORDERED: 0.9% NACL 500ML IV.SOLN 500 ML IV SCH (19:30)
[2022-01-19] MEDS: CEFTRIAXONE 1G VIAL IVP SCH (02:01)
[2022-01-19 04:00] VITALS: BP 117/49
[2022-01-19 07:45] LABS: MAGNESIUM 1.9 mg/dL (1.80-2.40); POTASSIUM 4.2 mmol/L (3.5-5.1)
[2022-01-19 08:00] VITALS: BP 161/72
[2022-01-19] MEDS: ZINC OXIDE OINT 56.7 GM TP SCH ×3 (09:00→20:43)
[2022-01-19] MEDS: NYSTATIN 15 GM POWDER TP SCH ×2 (09:00→20:43)
[2022-01-19] MEDS: 0.9%NACL 1000ML 1,000 ML IV SCH ×2 (10:00→20:43)
[2022-01-19] MEDS: METOPROLOL TARTRATE 25 MG TAB PO SCH ×2 (10:36→20:43)
[2022-01-19 12:00] VITALS: BP 126/68
[2022-01-19] MEDS ORDERED: ZOSYN 3.375GM +NS 50ML IV SCH (13:00)
[2022-01-19 13:33] LABS: APPEARANCE,URINE Cloudy (CLEAR); BILIRUBIN,URINE Moderate (NEGATIVE); COLOR,URINE Dark Yellow (YELLOW); GLUCOSE, URINE (UA) Negative (NEGATIVE); KETONES,URINE Trace mg/dL (NEGATIVE); LEUKOCYTE ESTERASE ,URINE Small (NEGATIVE); NITRATE,URINE Positive (NEGATIVE); OCCULT BLOOD,URINE Large (NEGATIVE); PH,URINE 5.5 (5.0-8.0); PROTEIN,URINE POS 2+ mg/dL (NEGATIVE)
[2022-01-19 13:44] LABS: BACTERIA,URINE Few /HPF (None Seen); RBC,URINE 26-50 /HPF (0-1)
[2022-01-19] MEDS: MORPHINE 2 MG SYG IVP PRN ×2 (14:48→22:51)
[2022-01-19 16:00] VITALS: BP 111/45
[2022-01-19] MEDS ORDERED: CEFTRIAXONE 1G VIAL IVP SCH (18:00)
[2022-01-19 20:00] VITALS: BP 139/79
[2022-01-19] MEDS: APIXABAN 5 MG TABLET PO SCH (20:43)
[2022-01-20] VITALS: BP 101/72
[2022-01-20] MEDS ORDERED: HALOPERIDOL INJ 5 MG/ML VIAL ONE (00:40)
[2022-01-20] MEDS ORDERED: HALOPERIDOL INJ 5 MG/ML VIAL IM SCH (01:00)
[2022-01-20] MEDS: MORPHINE 2 MG SYG IVP PRN ×2 (04:52→08:47)
[2022-01-20 04:57] VITALS: BP 125/53
[2022-01-20] MEDS: 0.9%NACL 1000ML 1,000 ML IV SCH ×2 (05:03→16:00)
[2022-01-20] MEDS: MAGNESIUM 2GM PREMIX 50ML 50 ML IV SCH (05:56)
[2022-01-20 08:03] VITALS: BP 126/78
[2022-01-20] MEDS: APIXABAN 5 MG TABLET PO SCH (08:46)
[2022-01-20] MEDS: METOPROLOL TARTRATE 25 MG TAB PO SCH ×2 (08:46→21:03)
[2022-01-20 11:00] VITALS: BP 172/73
[2022-01-20 11:04] LABS: BASOPHILS % (AUTO) 0.5 % (0.0-5.0); EOSINOPHILS % (AUTO) 0.6 % (0.0-8.0); HEMATOCRIT 37.2 % (36-48); LYMPHOCYTES % (AUTO) 11.9 % (21.0-51.0); MEAN CORPUSCULAR HEMOGLOBIN 31.6 pg (27.0-33.0); MEAN CORPUSCULAR HGB CONC 31.2 g/dL (32.0-36.0); MEAN CORPUSCULAR VOLUME 101.4 fL (79-99); MONOCYTES % (AUTO) 10.3 % (3.0-13.0); NEUTROPHILS % (AUTO) 74.5 % (40.0-77.0); NUCLEATED RED BLOOD CELLS 0.2 % (0.0-0.19); PLATELET COUNT (AUTO) 72 K/uL (130-400); RED BLOOD CELL COUNT(AUTO) 3.67 MIL/uL (4.00-5.50); RED CELL DISTRIBUTION WIDTH 19.7 % (11.0-15.5)
[2022-01-20] MEDS: HYDROMORPHONE 2 MG VIAL (2MG/ML) IVP PRN ×2 (12:49→17:12)
[2022-01-20 16:00] VITALS: BP 168/82
[2022-01-20] MEDS: ZINC OXIDE OINT 56.7 GM TP SCH ×3 (17:14→21:03)
[2022-01-20] MEDS: NYSTATIN 15 GM POWDER TP SCH ×2 (17:14→21:03)
[2022-01-20 20:00] VITALS: BP 126/78
[2022-01-20] MEDS ORDERED: CEFTRIAXONE 1G VIAL IVP SCH (21:00)
[2022-01-21] VITALS (13 sets, daily range): BP systolic 103–144; BP diastolic 41–109
[2022-01-21] MEDS: HYDROMORPHONE 2 MG VIAL (2MG/ML) IVP PRN ×3 (00:40→11:05)
[2022-01-21 04:38] LABS: BASOPHILS % (AUTO) 0.4 % (0.0-5.0); EOSINOPHILS % (AUTO) 0.2 % (0.0-8.0); HEMATOCRIT 35.5 % (36-48); LYMPHOCYTES % (AUTO) 7.8 % (21.0-51.0); MEAN CORPUSCULAR HEMOGLOBIN 31.6 pg (27.0-33.0); MEAN CORPUSCULAR HGB CONC 30.7 g/dL (32.0-36.0); MEAN CORPUSCULAR VOLUME 102.9 fL (79-99); NEUTROPHILS % (AUTO) 78.4 % (40.0-77.0); NUCLEATED RED BLOOD CELLS 0.3 % (0.0-0.19); PLATELET COUNT (AUTO) 69 K/uL (130-400); RED BLOOD CELL COUNT(AUTO) 3.45 MIL/uL (4.00-5.50); RED CELL DISTRIBUTION WIDTH 20.4 % (11.0-15.5); WHITE BLOOD COUNT (AUTO) 17.8 K/uL (4.8-10.8)
[2022-01-21 04:52] LABS: INR 2.58 (0.85-1.15); PROTHROMBIN TIME 26.7 SEC (9.6-11.6)
[2022-01-21 04:54] LABS: PARTIAL THROMBOPLASTIN TIME 29.6 SEC (26.3-35.5)
[2022-01-21 05:06] LABS: ALBUMIN 1.6 g/dL (3.5-5.0); BILIRUBIN,TOTAL 6.2 mg/dL (0.2-1.0); CREATININE 1.3 mg/dL (0.5-1.5); POTASSIUM 4.1 mmol/L (3.5-5.1); TOTAL PROTEIN, SERUM 6.3 g/dL (6.0-8.3)
[2022-01-21] MEDS: ZINC OXIDE OINT 56.7 GM TP SCH ×3 (08:50→21:00)
[2022-01-21] MEDS: METOPROLOL TARTRATE 25 MG TAB PO SCH ×2 (09:00→20:24)
[2022-01-21] MEDS: NYSTATIN 15 GM POWDER TP SCH ×2 (11:07→21:26)
[2022-01-21] MEDS ORDERED: DiphenhydrAMINE HCL 50 MG/ML VIAL IV SCH (12:30)
[2022-01-21] MEDS ORDERED: PHARMACY COMMUNICATION MISC SCH ×2 (13:00→14:00)
[2022-01-21] MEDS ORDERED: DEXAMETHASONE 10MG/ML 1ML VIAL 20 MG in 0.9%NACL 50ML 50 ML IV SCH (13:30)
[2022-01-21] MEDS: LACTULOSE 20 GM/30 ML UDCUP PR SCH ×3 (14:39→23:44)
[2022-01-21] MEDS ORDERED: HYDROMORPHONE 2 MG VIAL (2MG/ML) IVP PRN (16:00)
[2022-01-21 17:19] LABS: HEMATOCRIT 37.8 % (36-48); MEAN CORPUSCULAR HGB CONC 30.2 g/dL (32.0-36.0); MEAN CORPUSCULAR VOLUME 106.2 fL (79-99); NUCLEATED RED BLOOD CELLS 0.5 % (0.0-0.19); PLATELET COUNT (AUTO) 71 K/uL (130-400); RED BLOOD CELL COUNT(AUTO) 3.56 MIL/uL (4.00-5.50); WHITE BLOOD COUNT (AUTO) 20.7 K/uL (4.8-10.8)
[2022-01-21] MEDS ORDERED: HALOPERIDOL INJ 5 MG/ML VIAL IM PRN (17:30)
[2022-01-21] MEDS ORDERED: DEXTROSE 5 % AND 0.9 % NACL 1,000 ML IV SCH (17:30)
[2022-01-21] MEDS ORDERED: ONDANSETRON ODT 4MG TAB PO PRN (17:30)
[2022-01-21] MEDS ORDERED: MELATONIN PO PRN (17:30)
[2022-01-21] MEDS ORDERED: PYRIDOXINE HCL PO PRN (17:30)
[2022-01-21] MEDS: CEFEPIME HCL 2 GM VIAL IVP SCH (17:30)
[2022-01-21 17:35] LABS: ABG HCO3 18.3 mmol/L (21.0-28.0); ABG OXYGEN SATURATION 85.4 % (95.0-99.0); ABG PCO2 45 mmHg (32-45)
[2022-01-21] MEDS ORDERED: SODIUM BICARB 8.4% 50ML SYRINGE IVP SCH (17:52)
[2022-01-21 18:02] LABS: CREATININE 1.9 mg/dL (0.5-1.5); POTASSIUM 4.8 mmol/L (3.5-5.1)
[2022-01-21 18:04] LABS: BAND NEUTROPHILS % (MANUAL) 11 % (0-2); EOSINOPHILS % (MANUAL) 1 % (1-6); LYMPHOCYTES % (MANUAL) 5 % (22-44); MAN.DIFF COMMENT-IMPRESSION MANUAL DIFFERENTIAL; MONOCYTES % (MANUAL) 6 % (2-9); SEGMENTED NEUTROPHILS % 77 % (40-70)
[2022-01-21 18:05] LABS: PLATELET MORPHOLOGY COMMENT DECREASED
[2022-01-21 18:06] LABS: INR 2.89 (0.85-1.15); PROTHROMBIN TIME 29.7 SEC (9.6-11.6)
[2022-01-21 18:07] LABS: ALBUMIN 1.8 g/dL (3.5-5.0); BILIRUBIN,TOTAL 7.3 mg/dL (0.2-1.0); MAGNESIUM 2.2 mg/dL (1.80-2.40); TOTAL PROTEIN, SERUM 6.8 g/dL (6.0-8.3)
[2022-01-21 18:07] LABS: PARTIAL THROMBOPLASTIN TIME 29.6 SEC (26.3-35.5)
[2022-01-21] MEDS ORDERED: SODIUM BICARB 50MEQ 50ML VIAL 100 ML ONE (18:55)
[2022-01-21] MEDS: LACTULOSE 20 GM/30 ML UDCUP PO SCH ×2 (18:56→23:41)
[2022-01-21] MEDS: SODIUM BICARB 8.4% 50ML SYRING 150 MEQ in DEXTROSE 5%-WATER 1,000 ML IVP SCH (20:25)
[2022-01-21] MEDS ORDERED: ALBUMIN (HUMAN) 25% 100 ML IV SCH (21:00)
[2022-01-21] MEDS ORDERED: SODIUM BICARB 50MEQ 50ML VIAL IV SCH (21:00)
[2022-01-21] MEDS: GABAPENTIN 100 MG CAPSULE PO SCH (21:00)
[2022-01-21] MEDS: QUETIAPINE FUMARATE 25 MG TAB PO SCH (21:00)
[2022-01-21] MEDS: MIDODRINE HCL 5 MG TABLET PO SCH (21:00)
[2022-01-21] MEDS ORDERED: PHYTONADIONE 10 MG in 0.9%NACL 50ML 50 ML IVPB SCH (21:00)
[2022-01-21] MEDS: LATANOPROST 2.5 ML DROPS OP SCH (21:25)
[2022-01-21] MEDS: TIMOLOL MALEATE 0.5% 5 ML BOTTLE OP SCH (21:26)
[2022-01-21] MEDS: RIFAXIMIN 550 MG TABLET PO SCH (21:50)
[2022-01-21] MEDS: METRONIDAZOLE 500 MG TABLET PO SCH (21:50)
[2022-01-21] MEDS: OCTREOTIDE ACETATE 100 MCG/ML AMP IV SCH (23:41)
[2022-01-22] VITALS (48 sets, daily range): BP systolic 76–138; BP diastolic 19–101
[2022-01-22 03:40] LABS: ABG BASE EXCESS -1.6 mmol/L (-2.0-3.0); ABG HCO3 23.8 mmol/L (21.0-28.0); ABG OXYGEN SATURATION 97.2 % (95.0-99.0); ABG PCO2 43 mmHg (32-45)
[2022-01-22 04:41] LABS: BASOPHILS % (AUTO) 0.2 % (0.0-5.0); HEMATOCRIT 30.6 % (36-48); LYMPHOCYTES % (AUTO) 5.3 % (21.0-51.0); MEAN CORPUSCULAR HEMOGLOBIN 32.1 pg (27.0-33.0); MEAN CORPUSCULAR HGB CONC 30.7 g/dL (32.0-36.0); MEAN CORPUSCULAR VOLUME 104.4 fL (79-99); MONOCYTES % (AUTO) 4.4 % (3.0-13.0); NUCLEATED RED BLOOD CELLS 0.3 % (0.0-0.19); PLATELET COUNT (AUTO) 51 K/uL (130-400); RED BLOOD CELL COUNT(AUTO) 2.93 MIL/uL (4.00-5.50); RED CELL DISTRIBUTION WIDTH 21.2 % (11.0-15.5); WHITE BLOOD COUNT (AUTO) 11.9 K/uL (4.8-10.8)
[2022-01-22 04:50] LABS: INR 2.57 (0.85-1.15); PROTHROMBIN TIME 26.6 SEC (9.6-11.6)
[2022-01-22 04:51] LABS: PARTIAL THROMBOPLASTIN TIME 31.4 SEC (26.3-35.5)
[2022-01-22] MEDS: OCTREOTIDE ACETATE 100 MCG/ML AMP IV SCH (05:07)
[2022-01-22] MEDS: LACTULOSE 20 GM/30 ML UDCUP PR SCH (05:08)
[2022-01-22] MEDS: LACTULOSE 20 GM/30 ML UDCUP PO SCH ×4 (05:08→23:34)
[2022-01-22 05:10] LABS: CREATININE 2.1 mg/dL (0.5-1.5); MAGNESIUM 2.2 mg/dL (1.80-2.40); PHOSPHORUS 8.1 mg/dL (2.5-4.9); POTASSIUM 4.7 mmol/L (3.5-5.1); TOTAL PROTEIN, SERUM 5.9 g/dL (6.0-8.3)
[2022-01-22] MEDS: CEFEPIME HCL 2 GM VIAL IVP SCH (05:10)
[2022-01-22] MEDS: METRONIDAZOLE 500 MG TABLET PO SCH ×3 (05:10→19:58)
[2022-01-22] MEDS ORDERED: ZIPRASIDONE MESYLATE 20 MG/VIAL IM PRN (08:30)
[2022-01-22] MEDS ORDERED: RISPERIDONE 1 MG TABLET PO PRN (08:30)
[2022-01-22] MEDS: RIFAXIMIN 550 MG TABLET PO SCH ×2 (08:39→19:58)
[2022-01-22] MEDS: QUETIAPINE FUMARATE 25 MG TAB PO SCH ×2 (08:40→19:58)
[2022-01-22] MEDS: MIDODRINE HCL 5 MG TABLET PO SCH ×3 (08:40→19:58)
[2022-01-22] MEDS: METOPROLOL TARTRATE 25 MG TAB PO SCH ×2 (08:40→19:58)
[2022-01-22] MEDS: GABAPENTIN 100 MG CAPSULE PO SCH (08:40)
[2022-01-22] MEDS: ZINC OXIDE OINT 56.7 GM TP SCH (09:00)
[2022-01-22] MEDS: TIMOLOL MALEATE 0.5% 5 ML BOTTLE OP SCH ×2 (09:00→21:00)
[2022-01-22] MEDS: NYSTATIN 15 GM POWDER TP SCH ×2 (09:53→19:59)
[2022-01-22] MEDS: SODIUM BICARB 8.4% 50ML SYRING 150 MEQ in DEXTROSE 5%-WATER 1,000 ML IVP SCH ×2 (12:59→23:34)
[2022-01-22] MEDS: OCTREOTIDE ACETATE 100 MCG/ML AMP SQ SCH ×2 (13:25→19:58)
[2022-01-22] MEDS: ZINC OXIDE OINT 60GM TUBE TP SCH ×2 (17:33→19:59)
[2022-01-22] MEDS: CEFEPIME HCL 1 GM VIAL IVP SCH (19:59)
[2022-01-22] MEDS: LATANOPROST 2.5 ML DROPS OP SCH (21:00)
[2022-01-23] VITALS (47 sets, daily range): BP systolic 86–144; BP diastolic 44–84
[2022-01-23] MEDS: OCTREOTIDE ACETATE 100 MCG/ML AMP SQ SCH ×3 (04:43→21:36)
[2022-01-23] MEDS: LACTULOSE 20 GM/30 ML UDCUP PO SCH ×3 (04:43→16:30)
[2022-01-23] MEDS: METRONIDAZOLE 500 MG TABLET PO SCH ×3 (04:43→21:37)
[2022-01-23 08:39] LABS: BASOPHILS % (AUTO) 0.2 % (0.0-5.0); HEMATOCRIT 31.5 % (36-48); MEAN CORPUSCULAR HEMOGLOBIN 31.8 pg (27.0-33.0); MEAN CORPUSCULAR HGB CONC 30.8 g/dL (32.0-36.0); MEAN CORPUSCULAR VOLUME 103.3 fL (79-99); NUCLEATED RED BLOOD CELLS 0.4 % (0.0-0.19); PLATELET COUNT (AUTO) 43 K/uL (130-400); RED BLOOD CELL COUNT(AUTO) 3.05 MIL/uL (4.00-5.50); RED CELL DISTRIBUTION WIDTH 21.8 % (11.0-15.5); WHITE BLOOD COUNT (AUTO) 14.9 K/uL (4.8-10.8)
[2022-01-23 08:49] LABS: CREATININE 2.8 mg/dL (0.5-1.5); POTASSIUM 4.4 mmol/L (3.5-5.1)
[2022-01-23 08:57] LABS: INR 2.86 (0.85-1.15); PROTHROMBIN TIME 29.4 SEC (9.6-11.6)
[2022-01-23 08:59] LABS: PARTIAL THROMBOPLASTIN TIME 32.7 SEC (26.3-35.5)
[2022-01-23] MEDS: TIMOLOL MALEATE 0.5% 5 ML BOTTLE OP SCH ×2 (09:00→21:39)
[2022-01-23] MEDS: RIFAXIMIN 550 MG TABLET PO SCH ×2 (09:23→21:36)
[2022-01-23] MEDS: QUETIAPINE FUMARATE 25 MG TAB PO SCH ×2 (09:24→21:36)
[2022-01-23] MEDS: ZINC OXIDE OINT 60GM TUBE TP SCH ×3 (09:24→21:40)
[2022-01-23] MEDS: MIDODRINE HCL 5 MG TABLET PO SCH ×3 (09:24→21:37)
[2022-01-23] MEDS: NYSTATIN 15 GM POWDER TP SCH ×2 (09:25→21:40)
[2022-01-23] MEDS: METOPROLOL TARTRATE 25 MG TAB PO SCH ×2 (09:25→21:00)
[2022-01-23] MEDS: SODIUM BICARB 8.4% 50ML SYRING 150 MEQ in DEXTROSE 5%-WATER 1,000 ML IVP SCH (09:37)
[2022-01-23] MEDS: INSULIN HUMULIN R 100 UNIT/ML 3ML SQ SCH (18:17)
[2022-01-23] MEDS: CEFEPIME HCL 1 GM VIAL IVP SCH (21:36)
[2022-01-24] VITALS (39 sets, daily range): BP systolic 102–148; BP diastolic 38–97
[2022-01-24] MEDS: LACTULOSE 20 GM/30 ML UDCUP PO SCH ×4 (00:21→20:30)
[2022-01-24] MEDS: INSULIN HUMULIN R 100 UNIT/ML 3ML SQ SCH ×5 (00:27→23:28)
[2022-01-24] MEDS: SODIUM BICARB 8.4% 50ML SYRING 150 MEQ in DEXTROSE 5%-WATER 1,000 ML IVP SCH (01:54)
[2022-01-24] MEDS: OCTREOTIDE ACETATE 100 MCG/ML AMP SQ SCH ×3 (05:56→22:08)
[2022-01-24] MEDS: METRONIDAZOLE 500 MG TABLET PO SCH ×3 (05:56→20:37)
[2022-01-24] MEDS: RIFAXIMIN 550 MG TABLET PO SCH ×2 (09:53→20:31)
[2022-01-24] MEDS: METOPROLOL TARTRATE 25 MG TAB PO SCH ×2 (09:54→20:31)
[2022-01-24] MEDS: QUETIAPINE FUMARATE 25 MG TAB PO SCH ×2 (09:55→20:31)
[2022-01-24] MEDS: NYSTATIN 15 GM POWDER TP SCH ×2 (09:57→20:41)
[2022-01-24] MEDS: ZINC OXIDE OINT 60GM TUBE TP SCH ×3 (09:57→20:40)
[2022-01-24] MEDS: TIMOLOL MALEATE 0.5% 5 ML BOTTLE OP SCH ×2 (09:58→20:40)
[2022-01-24] MEDS: PHYTONADIONE 10 MG/1 ML AMP SQ SCH (11:06)
[2022-01-24 11:39] LABS: BASOPHILS % (AUTO) 0.1 % (0.0-5.0); EOSINOPHILS % (AUTO) 0.2 % (0.0-8.0); HEMATOCRIT 34.8 % (36-48); LYMPHOCYTES % (AUTO) 4.2 % (21.0-51.0); MEAN CORPUSCULAR HEMOGLOBIN 32.2 pg (27.0-33.0); MEAN CORPUSCULAR HGB CONC 31.6 g/dL (32.0-36.0); MEAN CORPUSCULAR VOLUME 101.8 fL (79-99); NEUTROPHILS % (AUTO) 89.5 % (40.0-77.0); NUCLEATED RED BLOOD CELLS 0.4 % (0.0-0.19); PLATELET COUNT (AUTO) 34 K/uL (130-400); RED BLOOD CELL COUNT(AUTO) 3.42 MIL/uL (4.00-5.50); RED CELL DISTRIBUTION WIDTH 21.6 % (11.0-15.5); WHITE BLOOD COUNT (AUTO) 16.1 K/uL (4.8-10.8)
[2022-01-24] MEDS: LATANOPROST 2.5 ML DROPS OP SCH (20:30)
[2022-01-24] MEDS: CEFEPIME HCL 1 GM VIAL IVP SCH (20:31)
[2022-01-25] VITALS (30 sets, daily range): BP systolic 84–126; BP diastolic 40–76
[2022-01-25 04:04] LABS: BASOPHILS % (AUTO) 0.2 % (0.0-5.0); EOSINOPHILS % (AUTO) 0.1 % (0.0-8.0); HEMATOCRIT 38.3 % (36-48); LYMPHOCYTES % (AUTO) 2.9 % (21.0-51.0); MEAN CORPUSCULAR HEMOGLOBIN 32.4 pg (27.0-33.0); MEAN CORPUSCULAR HGB CONC 31.3 g/dL (32.0-36.0); MEAN CORPUSCULAR VOLUME 103.5 fL (79-99); NEUTROPHILS % (AUTO) 89.9 % (40.0-77.0); NUCLEATED RED BLOOD CELLS 0.5 % (0.0-0.19); PLATELET COUNT (AUTO) 29 K/uL (130-400); WHITE BLOOD COUNT (AUTO) 16.4 K/uL (4.8-10.8)
[2022-01-25 04:21] LABS: ALBUMIN 1.6 g/dL (3.5-5.0); BILIRUBIN,TOTAL 11.3 mg/dL (0.2-1.0); CREATININE 2.2 mg/dL (0.5-1.5); POTASSIUM 4.1 mmol/L (3.5-5.1); TOTAL PROTEIN, SERUM 5.9 g/dL (6.0-8.3)
[2022-01-25] MEDS: OCTREOTIDE ACETATE 100 MCG/ML AMP SQ SCH ×3 (05:26→21:06)
[2022-01-25] MEDS: METRONIDAZOLE 500 MG TABLET PO SCH ×3 (05:26→21:06)
[2022-01-25] MEDS: INSULIN HUMULIN R 100 UNIT/ML 3ML SQ SCH ×4 (06:00→23:31)
[2022-01-25] MEDS ORDERED: METOPROLOL TARTRATE 1 MG/ML 5ML VIAL IV ONE (06:20)
[2022-01-25] MEDS ORDERED: METOPROLOL TARTRATE 1 MG/ML 5ML VIAL IV SCH (06:30)
[2022-01-25 07:04] LABS: INR 2.86 (0.85-1.15); PROTHROMBIN TIME 29.4 SEC (9.6-11.6)
[2022-01-25 07:05] LABS: PARTIAL THROMBOPLASTIN TIME 32.9 SEC (26.3-35.5)
[2022-01-25] MEDS ORDERED: METOPROLOL TARTRATE 1 MG/ML 5ML VIAL IV PRN (08:00)
[2022-01-25] MEDS: LACTULOSE 20 GM/30 ML UDCUP PO SCH ×2 (09:41→20:19)
[2022-01-25] MEDS: QUETIAPINE FUMARATE 25 MG TAB PO SCH ×2 (09:41→20:20)
[2022-01-25] MEDS: RIFAXIMIN 550 MG TABLET PO SCH ×2 (09:41→20:20)
[2022-01-25] MEDS: METOPROLOL TARTRATE 25 MG TAB PO SCH ×2 (09:41→20:20)
[2022-01-25] MEDS: PHYTONADIONE 10 MG/1 ML AMP SQ SCH (09:41)
[2022-01-25] MEDS: TIMOLOL MALEATE 0.5% 5 ML BOTTLE OP SCH ×2 (09:43→20:14)
[2022-01-25] MEDS: NYSTATIN 15 GM POWDER TP SCH ×2 (09:44→20:20)
[2022-01-25] MEDS: ZINC OXIDE OINT 60GM TUBE TP SCH ×3 (09:44→20:20)
[2022-01-25] MEDS: LATANOPROST 2.5 ML DROPS OP SCH (20:20)
[2022-01-25] MEDS: CEFEPIME HCL 1 GM VIAL IVP SCH (20:20)
[2022-01-26] VITALS (25 sets, daily range): BP systolic 89–135; BP diastolic 46–77
[2022-01-26] MEDS: OCTREOTIDE ACETATE 100 MCG/ML AMP SQ SCH ×3 (05:36→21:12)
[2022-01-26] MEDS: METRONIDAZOLE 500 MG TABLET PO SCH ×3 (05:36→21:12)
[2022-01-26] MEDS: INSULIN HUMULIN R 100 UNIT/ML 3ML SQ SCH ×3 (05:37→17:38)
[2022-01-26 05:43] LABS: BASOPHILS % (AUTO) 0.2 % (0.0-5.0); EOSINOPHILS % (AUTO) 0.2 % (0.0-8.0); HEMATOCRIT 37.8 % (36-48); MEAN CORPUSCULAR HEMOGLOBIN 32.9 pg (27.0-33.0); MEAN CORPUSCULAR HGB CONC 31.5 g/dL (32.0-36.0); MEAN CORPUSCULAR VOLUME 104.4 fL (79-99); MONOCYTES % (AUTO) 5.9 % (3.0-13.0); NEUTROPHILS % (AUTO) 89.9 % (40.0-77.0); NUCLEATED RED BLOOD CELLS 0.4 % (0.0-0.19); PLATELET COUNT (AUTO) 29 K/uL (130-400); RED BLOOD CELL COUNT(AUTO) 3.62 MIL/uL (4.00-5.50); WHITE BLOOD COUNT (AUTO) 24.4 K/uL (4.8-10.8)
[2022-01-26 06:11] LABS: ALBUMIN 1.6 g/dL (3.5-5.0); CREATININE 2.4 mg/dL (0.5-1.5); POTASSIUM 3.5 mmol/L (3.5-5.1); TOTAL PROTEIN, SERUM 5.8 g/dL (6.0-8.3)
[2022-01-26 06:12] LABS: INR 2.76 (0.85-1.15); PROTHROMBIN TIME 28.4 SEC (9.6-11.6)
[2022-01-26 06:13] LABS: PARTIAL THROMBOPLASTIN TIME 34.7 SEC (26.3-35.5)
[2022-01-26] MEDS: LACTULOSE 20 GM/30 ML UDCUP PO SCH ×2 (08:42→20:00)
[2022-01-26] MEDS: NYSTATIN 15 GM POWDER TP SCH ×2 (08:42→20:02)
[2022-01-26] MEDS: RIFAXIMIN 550 MG TABLET PO SCH ×2 (08:43→20:00)
[2022-01-26] MEDS: METOPROLOL TARTRATE 25 MG TAB PO SCH ×2 (08:43→20:00)
[2022-01-26] MEDS: QUETIAPINE FUMARATE 25 MG TAB PO SCH ×2 (08:43→20:00)
[2022-01-26] MEDS: PHYTONADIONE 10 MG/1 ML AMP SQ SCH (08:44)
[2022-01-26] MEDS: ZINC OXIDE OINT 60GM TUBE TP SCH ×3 (08:44→20:01)
[2022-01-26] MEDS: TIMOLOL MALEATE 0.5% 5 ML BOTTLE OP SCH ×2 (08:45→20:03)
[2022-01-26] MEDS: CEFEPIME HCL 1 GM VIAL IVP SCH (19:59)
[2022-01-26] MEDS: LATANOPROST 2.5 ML DROPS OP SCH (20:03)
[2022-01-26] MEDS ORDERED: AMIODARONE 900MG VIAL 360 MG in DEXTROSE 5%-WATER 200 ML IV SCH (21:30)
[2022-01-26] MEDS ORDERED: AMIODARONE 900MG VIAL 150 MG in DEXTROSE 5%-WATER 100 ML IV SCH (21:30)
[2022-01-26] MEDS ORDERED: AMIODARONE 150MG VIAL ONE ×2 (21:39→21:52)
[2022-01-26] MEDS ORDERED: DEXTROSE 5%-WATER 100 ML IV ONE (21:41)
[2022-01-27] VITALS (19 sets, daily range): BP systolic 84–117; BP diastolic 46–72
[2022-01-27] MEDS ORDERED: AMIODARONE 900MG VIAL 540 MG in DEXTROSE 5%-WATER 300 ML IV PRN (03:30)
[2022-01-27] MEDS: INSULIN HUMULIN R 100 UNIT/ML 3ML SQ SCH ×3 (06:00→11:42)
[2022-01-27] MEDS: OCTREOTIDE ACETATE 100 MCG/ML AMP SQ SCH ×2 (07:17→14:03)
[2022-01-27] MEDS: METRONIDAZOLE 500 MG TABLET PO SCH (07:17)
[2022-01-27 07:19] LABS: INR 2.79 (0.85-1.15); PARTIAL THROMBOPLASTIN TIME 37.8 SEC (26.3-35.5); PROTHROMBIN TIME 28.7 SEC (9.6-11.6)
[2022-01-27 07:48] LABS: CREATININE 2.9 mg/dL (0.5-1.5); POTASSIUM 3.4 mmol/L (3.5-5.1)
[2022-01-27] MEDS: RIFAXIMIN 550 MG TABLET PO SCH (08:18)
[2022-01-27] MEDS: QUETIAPINE FUMARATE 25 MG TAB PO SCH (08:18)
[2022-01-27] MEDS: LACTULOSE 20 GM/30 ML UDCUP PO SCH (08:18)
[2022-01-27] MEDS: NYSTATIN 15 GM POWDER TP SCH (08:18)
[2022-01-27] MEDS: METOPROLOL TARTRATE 25 MG TAB PO SCH ×2 (08:18→08:21)
[2022-01-27 08:26] LABS: ALBUMIN 1.6 g/dL (3.5-5.0); BILIRUBIN,TOTAL 15.9 mg/dL (0.2-1.0); TOTAL PROTEIN, SERUM 5.7 g/dL (6.0-8.3)
[2022-01-27] MEDS: TIMOLOL MALEATE 0.5% 5 ML BOTTLE OP SCH (08:31)
[2022-01-27] MEDS ORDERED: BALSAM PERU/CASTOR OIL 60 GM TUBE TP SCH (09:00)
[2022-01-27 09:10] LABS: BASOPHILS % (AUTO) 0.3 % (0.0-5.0); EOSINOPHILS % (AUTO) 0.1 % (0.0-8.0); HEMATOCRIT 39.7 % (36-48); LYMPHOCYTES % (AUTO) 2.4 % (21.0-51.0); MEAN CORPUSCULAR HEMOGLOBIN 32.8 pg (27.0-33.0); MEAN CORPUSCULAR HGB CONC 31.2 g/dL (32.0-36.0); MONOCYTES % (AUTO) 7.3 % (3.0-13.0); NEUTROPHILS % (AUTO) 88.2 % (40.0-77.0); NUCLEATED RED BLOOD CELLS 0.8 % (0.0-0.19); PLATELET COUNT (AUTO) 32 K/uL (130-400); RED BLOOD CELL COUNT(AUTO) 3.78 MIL/uL (4.00-5.50)
[2022-01-27 09:11] LABS: WHITE BLOOD COUNT (AUTO) 30.3 K/uL (4.8-10.8)
[2022-01-27 09:45] LABS: BAND NEUTROPHILS % (MANUAL) 2 % (0-2); MONOCYTES % (MANUAL) 9 % (2-9); SEGMENTED NEUTROPHILS % 89 % (40-70)
[2022-01-27 09:46] LABS: MAN.DIFF COMMENT-IMPRESSION MANUAL DIFFERENTIAL
[2022-01-27] MEDS: MIDODRINE HCL 5 MG TABLET PO SCH ×2 (11:48→14:03)
[2022-01-27] MEDS ORDERED: VANCOMYCIN PROTOCOL PER PHARMACY IV SCH (12:30)
[2022-01-27] MEDS ORDERED: 0.9%NACL 1000ML 501 ML IV ONE (12:30)
[2022-01-27] MEDS ORDERED: RENAL DOSE IV PRN (12:30)
[2022-01-27] MEDS ORDERED: MEROPENEM 500 MG VIAL IVP SCH (12:30)
[2022-01-27 13:24] LABS: APPEARANCE,URINE TURBID (CLEAR); BILIRUBIN,URINE LARGE (NEGATIVE); COLOR,URINE AMBER (YELLOW); GLUCOSE, URINE (UA) 100 mg/dL (NEGATIVE); KETONES,URINE 15 mg/dL (NEGATIVE); LEUKOCYTE ESTERASE ,URINE MODERATE (NEGATIVE); NITRATE,URINE POSITIVE (NEGATIVE); OCCULT BLOOD,URINE LARGE (NEGATIVE); PH,URINE 6.5 (5.0-8.0); PROTEIN,URINE 100 mg/dL (NEGATIVE)
[2022-01-27] MEDS ORDERED: VANCOMYCIN 1.75 GM/250 ML BAG 250 ML IV ONE (14:00)
[2022-01-27 14:13] LABS: BACTERIA,URINE Moderate /HPF (None Seen); SQUAMOUS EPITHELIAL CELL,UR Moderate /HPF (0-2); YEAST,URINE BUDDING Moderate /HPF (None Seen)
[2022-01-27 14:14] LABS: RBC,URINE 51-100 /HPF (0-1); WBC,URINE >100 /HPF (0-1)
[2022-01-27] MEDS ORDERED: LORAZEPAM 2 MG/ML 1 ML VIAL IVP PRN (17:00)
[2022-01-27] MEDS ORDERED: MORPHINE 2 MG SYG IVP PRN (17:00)
[2022-01-27] MEDS ORDERED: GLYCOPYRROLATE 1 MG/5 ML SYRINGE IV PRN (17:00)
[2022-01-27] MEDS ORDERED: LORAZEPAM 2 MG/ML 1 ML VIAL IM PRN (17:00)
[2022-01-27] MEDS ORDERED: HALOPERIDOL INJ 5 MG/ML VIAL IV PRN (17:00)
[2022-01-28] VITALS: BP 97/54
[2022-01-28 00:53] VITALS: BP 80/50
[2022-01-28 02:30] VITALS: BP 80/51
[2022-01-28 07:00] VITALS: BP 69/42
[2022-01-28] MEDS ORDERED: PANTOPRAZOLE 40 MG/VIAL IVP SCH (09:00)
[2022-01-28 11:05] VITALS: BP 76/48
[2022-01-29] MEDS ORDERED: VANCOMYCIN 1G/250ML KIT 250 ML IV SCH (14:00)
== END 2022-01-28 11:44 | disposition hospice, inpatient (51) | DRG 871 ==
LOC: EDH 20:50 → EDHIP 23:06 → 3CH 01-16 01:35 → 4CH 01-20 01:46 → 2CH 01-21 20:00 → 3CH 01-27 23:01
PROVIDERS: ADMIT Internal Medicine Hematology & Oncology; ATTEND Internal Medicine Hematology & Oncology
PROC: 30233K1 Transfusion of Nonautologous Frozen Plasma into Peripheral Vein, Percutaneous Approach (ICD-10-PCS; principal; 2022-01-21)
PROC: 5A09357 Assistance with Respiratory Ventilation, Less than 24 Consecutive Hours, Continuous Positive Airway Pressure (ICD-10-PCS; 2022-01-21)
PROC: 5A09357 Assistance with Respiratory Ventilation, Less than 24 Consecutive Hours, Continuous Positive Airway Pressure (ICD-10-PCS; 2022-01-22)
DX: A41.9 Sepsis, unspecified organism (principal); E43 Unspecified severe protein-calorie malnutrition; G92.8 Other toxic encephalopathy; K76.7 Hepatorenal syndrome; K92.2 Gastrointestinal hemorrhage, unspecified; C34.90 Malignant neoplasm of unspecified part of unspecified bronchus or lung; C78.7 Secondary malignant neoplasm of liver and intrahepatic bile duct; I82.431 Acute embolism and thrombosis of right popliteal vein; D68.9 Coagulation defect, unspecified; N17.9 Acute kidney failure, unspecified; E72.20 Disorder of urea cycle metabolism, unspecified; Z68.41 Body mass index [BMI] 40.0-44.9, adult; I82.449 Acute embolism and thrombosis of unspecified tibial vein; R65.20 Severe sepsis without septic shock; E78.5 Hyperlipidemia, unspecified; E83.42 Hypomagnesemia; I10 Essential (primary) hypertension; Z20.822 Contact with and (suspected) exposure to COVID-19; E87.8 Other disorders of electrolyte and fluid balance, not elsewhere classified; E78.00 Pure hypercholesterolemia, unspecified; E86.0 Dehydration; E66.01 Morbid (severe) obesity due to excess calories; K72.90 Hepatic failure, unspecified without coma; F39 Unspecified mood [affective] disorder; R54 Age-related physical debility; D53.9 Nutritional anemia, unspecified; D69.6 Thrombocytopenia, unspecified; N93.9 Abnormal uterine and vaginal bleeding, unspecified; I48.91 Unspecified atrial fibrillation; Z66 Do not resuscitate; Z79.899 Other long term (current) drug therapy
CPT/HCPCS: 36415; 36600; 70450; 71045; 74018; 80048; 80053; 81001; 82140; 82435; 82550; 82803; 82947; 82948; 83605; 83615; 83735; 84100; 84132; 84145; 84295; 84484; 85018; 85025; 85610; 85651; 85730; 86140; 86850; 86900; 86901; 86927; 87040; 87088; 87635; 87804; 92610; 93005; 93970; 94660; 97039; C9803; G0378; J0282; J0692; J0696; J1100; J1170; J1200; J1630; J1815; J2060; J2185; J2354; J2405; J3430; J3475; J3490; J7030; J7040; J7060; J7070; P9017; P9046

== ENCOUNTER 2022-01-28 11:45 | Inpatient (IN) | payer OTHER ==
[~2022-01-28] VITALS: Ht 157.5 cm; Wt 104.5 kg
[~2022-01-28 11:45] MED LIST changes: -ATOR10 PO; -BIOT5000 PO; -CHLO50TA PO; -CHOL200074 PO; -CYAN250010 PO; -DULO60CA64 PO; -FLUT15.845 NS; -HYDR25TA PO; -IBUP-2784 PO; -LISI40TA9 PO; -METF-891 PO; -METO50TA18 PO; -SEMA1PEN3 SQ; -STOOL SOFTNER PO; -TRAZ-185 PO; -ZINC30CA PO; -ZOLP10TA2 PO
[2022-01-28] MEDS ORDERED: LORAZEPAM 2 MG/ML 1 ML VIAL IVP PRN (17:00)
[2022-01-28] MEDS ORDERED: GLYCOPYRROLATE 1 MG/5 ML SYRINGE IV PRN (17:00)
[2022-01-28] MEDS ORDERED: ONDANSETRON 4MG INJ IVP PRN (17:00)
[2022-01-28] MEDS ORDERED: BISACODYL 10 MG SUPP.RECT RC PRN (17:00)
[2022-01-28] MEDS ORDERED: ACETAMINOPHEN 650 MG SUPPOSITORY RC PRN (17:00)
[2022-01-28] MEDS ORDERED: MORPHINE 2 MG SYG IVP PRN ×3 (17:00)
[2022-01-28 20:00] VITALS: BP 44/26
[2022-01-29] VITALS: BP 123/74
== END 2022-01-28 23:55 | DRG 181 ==
LOC: 3CH 11:45
PROVIDERS: ADMIT Internal Medicine Hematology & Oncology; ATTEND Internal Medicine Hematology & Oncology
DX: C34.90 Malignant neoplasm of unspecified part of unspecified bronchus or lung (principal); K92.2 Gastrointestinal hemorrhage, unspecified; Z66 Do not resuscitate
CPT/HCPCS: G0378; J3490